=== PATIENT | male | born 1995 | race African-American/Black ===

== ENCOUNTER 2020-06-18 15:54 | Emergency (ER) | payer MEDICAID ==
[~2020-06-18] VITALS: Ht 172.7 cm; Wt 81.0 kg
[2020-06-18] MEDS ORDERED: PENICILLIN G BENZATHINE 2,400,000 UNITS/4ML SYR IM ONE (17:00)
[2020-06-18] MEDS ORDERED: AZITHROMYCIN 500 MG TABLET PO ONE (17:00)
[2020-06-18 17:28] VITALS: BP 125/69
[2020-06-18 17:33] LABS: CLARITY URINE CLEAR (CLEAR); COLOR URINE YELLOW (YELLOW); KETONES URINE TRACE (NEGATIVE); LEUKOCYTE ESTERASE URINE NEGATIVE (NEGATIVE); NITRITE URINE NEGATIVE (NEGATIVE); OCCULT BLOOD URINE NEGATIVE (NEGATIVE); PROTEIN URINE NEGATIVE (NEGATIVE); SPECIFIC GRAVITY URINE 1.033 (1.005-1.030)
[2020-06-21 04:07] LABS: NEISSERIA GONORRHOEAE NAA Negative (Negative)
== END 2020-06-18 17:29 | disposition home or self-care (01) ==
LOC: ER 15:54
DX: A64 Unspecified sexually transmitted disease (principal); N34.2 Other urethritis
CPT/HCPCS: 81003; 86592; 87491; 87591; 96372; 99283; J0561

== ENCOUNTER 2020-08-18 10:58 | Emergency (ER) | payer SELFPAY ==
[~2020-08-18] VITALS: Ht 172.7 cm; Wt 82.0 kg
[2020-08-18 11:21] VITALS: BP 136/83
== END 2020-08-18 12:11 | disposition home or self-care (01) ==
LOC: ER 10:58
DX: Z20.2 Contact with and (suspected) exposure to infections with a predominantly sexual mode of transmission (principal)
CPT/HCPCS: 99281

== ENCOUNTER 2021-11-15 00:24 | Emergency (ER) | payer MEDICAID ==
[~2021-11-15] VITALS: Ht 170.2 cm; Wt 73.0 kg
[2021-11-15 00:38] VITALS: BP 130/85
[2021-11-15] MEDS ORDERED: KETOROLAC 60MG/2ML VIAL IM STA (00:47)
[2021-11-15] MEDS ORDERED: METOCLOPRAMIDE HCL 10MG/2ML VIAL IM STA (00:47)
== END 2021-11-15 01:38 | disposition left against medical advice (07) ==
LOC: ER 00:50
DX: R51.9 Headache, unspecified (principal); F12.10 Cannabis abuse, uncomplicated
CPT/HCPCS: 99281